=== PATIENT | female | born 1965 | race Caucasian/White ===

== ENCOUNTER 2022-07-15 10:50 | Outpatient (CLI) | payer BC, SELFPAY | END 2022-07-15 10:51 | disposition home or self-care (01) | PROVIDERS: PCP Family Medicine; Visit Provider Registered Nurse | DX: Z01.419 Encounter for gynecological examination (general) (routine) without abnormal findings (principal); N95.0 Postmenopausal bleeding; N93.9 Abnormal uterine and vaginal bleeding, unspecified; E66.01 Morbid (severe) obesity due to excess calories; Z13.6 Encounter for screening for cardiovascular disorders; Z13.1 Encounter for screening for diabetes mellitus; Z12.4 Encounter for screening for malignant neoplasm of cervix | CPT/HCPCS: 80061; 82947; 83001; 84443 ==

== ENCOUNTER 2022-07-19 14:29 | Outpatient (CLI) | payer BC, SELFPAY ==
[2022-07-19 21:34] LABS: Chloride* 103 mmol/L (96-114); Potassium* 4.2 mmol/L (3.6-5.1); Sodium* 138 mmol/L (135-149)
[2022-07-19 21:37] LABS: Blood Urea Nitrogen* 14 mg/dL (7-30); Calcium* 9.9 mg/dL (8.4-10.6); Carbon Dioxide* 25 mmol/L (20-32); Creatinine* 0.9 mg/dL (0.5-1.5); Estimated Glomerular Filt Rate 76 ml/min; Glucose* 95 mg/dL (60-115)
[2022-07-19 21:49] LABS: NT Pro B Type NatriureticPept* 47 pg/mL
== END 2022-07-19 14:30 | disposition home or self-care (01) ==
PROVIDERS: PCP Family Medicine; Visit Provider Nurse Practitioner Family
DX: N95.0 Postmenopausal bleeding (principal); R93.89 Abnormal findings on diagnostic imaging of other specified body structures; R06.02 Shortness of breath
CPT/HCPCS: 76830; 76856; 80048; 83880

== ENCOUNTER 2022-10-04 10:23 | Outpatient (CLI) | payer BC, SELFPAY | END 2022-10-04 10:24 | disposition home or self-care (01) | PROVIDERS: PCP Nurse Practitioner Family; Visit Provider Nurse Practitioner Family | DX: Z01.818 Encounter for other preprocedural examination (principal); R53.83 Other fatigue; E66.01 Morbid (severe) obesity due to excess calories | CPT/HCPCS: 80048; 83540; 83550; 85025 ==

== ENCOUNTER 2022-10-13 07:47 | Day surgery (SDC) | payer BC, SELFPAY ==
[2022-10-13 08:16] VITALS: BMI 58.4
[2022-10-13 08:19] VITALS: BP 120/61; PULSE 60; RESP 20; TEMP 36.3; O2SAT 94
[2022-10-13] MEDS: LACTATED RINGERS 1000 ML 1,000 ML 100 ML IV (08:35)
[2022-10-13] MEDS: SODIUM CHLORIDE 0.9 % (FLUSH) 10 ML SYRINGE IVF (08:39)
--- NOTE | 2022-10-13 09:08 | W.ANESCHARGE ---
Anesthesia Charges Start Date/Time Anesthesia Start Date: 10/13/22 Anesthesia Start Time: 08:50 Stop Date/Time Anesthesia Stop Date: 10/13/22 Anesthesia Stop Time: 09:50
[2022-10-13] MEDS: LIDOCAINE 1% MDV 20 ML INJECTION (09:28)
[2022-10-13 09:45] VITALS: BP 134/71; PULSE 59; RESP 20; TEMP 36.3; O2SAT 96
[2022-10-13 10:01] VITALS: BP 141/76; PULSE 54; RESP 20; O2SAT 100
[2022-10-13 10:15] VITALS: BP 152/75; PULSE 57; RESP 20; O2SAT 97
--- NOTE | 2022-10-13 12:52 | P.GYNPRC_ITS ---
Procedure Note Date Seen: 10/13/22 Procedure Details: PREOPERATIVE DIAGNOSIS: Postmenopausal bleeding with thickened endometrial stripe on recent imaging POSTOPERATIVE DIAGNOSIS: Postmenopausal bleeding Endometrial polyps PROCEDURE: Hysteroscopy, polypectomy, dilation and curettage SURGEON: Laurita Babin MD ANESTHESIA: Monitored anesthesia care, paracervical block IV FLUIDS: 500 cc crystalloid URINE OUTPUT: 25 cc via straight catheterization EBL: 5 cc SALINE DEFICIT: 255 cc FINDINGS: 1. On pelvic exam under anesthesia,vagina and cervix were normal in appearance. Bimanual exam did not show any obvious pelvic masses or uterine enlargement but exam was limited by patient habitus. 2. Upon laparoscopy, survey of the endometrial cavity revealed two endometrial polyps. There was one subcentimeter polyp in the right cornual region and another filling most of the endometrial cavity posteriorly, approximately 3 cm in length. Cavity shape was normal. COMPLICATIONS: None. PROCEDURE IN DETAIL: Patient was taken to the operating room with IV running. She was positioned in dorsal lithotomy position with her legs fully supported in Yellofin stirrups. Monitored anesthesia care was administered. She was prepped and draped in the usual sterile fashion. Exam under anesthesia was performed for the above-noted findings. Speculum was inserted. Cervix visualized and grasped along the anterior lip with a single-tooth tenaculum. Cervix was serially dilated to accommodate the T RUCLEAR hysteroscope. This was assembled with saline inflow and outflow in place. The line was flushed of bubbles. The hysteroscope was advanced through the cervix into the endometrial cavity for the above noted findings. The tissue morcellator was then inserted through the operating channel. Window lock was performed. Under direct visualization, the endometrial cavity was circumferentially curetted with the tissue morcellator. The hysteroscope and morcellator were then removed from the uterus. Tenaculum was removed from the anterior lip of cervix. Hemostasis was noted. Patient tolerated procedure well. She was taken to recovery area in stable condition.
== END 2022-10-13 10:33 | disposition home or self-care (01) ==
PROVIDERS: PCP Nurse Practitioner Family; Visit Provider Obstetrics & Gynecology
PROC: 0UDB8ZZ Extraction of Endometrium, Via Natural or Artificial Opening Endoscopic (ICD-10-PCS; CPT 58558; principal; 2022-10-13 08:45)
DX: N95.0 Postmenopausal bleeding (principal); N84.0 Polyp of corpus uteri; R93.89 Abnormal findings on diagnostic imaging of other specified body structures
CPT/HCPCS: 58558; 00952; 36415; 86850; 86900; 86901; 88305; J1100; J1885; J2250; J2405; J2704; J3010; J7120